=== PATIENT | male | born 1995 | race Caucasian/White ===

== ENCOUNTER 2025-04-23 10:34 | Emergency (ER) | payer BC ==
[2025-04-23] MEDS: Diphtheria,Pertussis(Acell),Tetanus Vaccine 0.5 ML Syringe IM ONE (12:20)
== END 2025-04-23 12:41 | disposition home or self-care (01) ==
LOC: JD.ED 10:34
DX: S51.812A Laceration without foreign body of left forearm, initial encounter (principal); Z23 Encounter for immunization; W19.XXXA Unspecified fall, initial encounter
CPT/HCPCS: 12015; 90471; 90715; 99282; J2003; 12004; 99283

== ENCOUNTER 2025-04-29 21:45 | Emergency (ER) | payer BC | END 2025-04-30 03:03 | disposition home or self-care (01) | LOC: JD.ED 21:45 | DX: L76.82 Other postprocedural complications of skin and subcutaneous tissue (principal); Z79.899 Other long term (current) drug therapy | CPT/HCPCS: 73090-26-LT; 73090-LT; 99282; 99283 ==